=== PATIENT | male | born 2000 | race Caucasian/White ===

== ENCOUNTER 2023-02-14 11:20 | Emergency (ER) | payer SELFPAY ==
[~2023-02-14] VITALS: Ht 160 cm; Wt 58.1 kg
[2023-02-14 11:22] VITALS: BP 122/59; PULSE 75; RESP 16; TEMP 98; O2SAT 99
[2023-02-14] MEDS ORDERED: LIDOCAINE MPF 1% 10 MG/ML VIAL INJ ONE (13:00)
[2023-02-14] MEDS ORDERED: BACITRACIN OINT 500 UNITS/GM PKT TP ONE (13:00)
[2023-02-14] MEDS ORDERED: BACI-418 TP (15:30)
[2023-02-14] MEDS ORDERED: IBUP-2213 PO (15:30)
[2023-02-14 15:44] VITALS: BP 122/59; PULSE 75; RESP 16; TEMP 98; O2SAT 99
== END 2023-02-14 15:45 | disposition home or self-care (01) ==
LOC: MED 11:20
DX: S01.112A Laceration without foreign body of left eyelid and periocular area, initial encounter (principal); Z79.899 Other long term (current) drug therapy; X58.XXXA Exposure to other specified factors, initial encounter; Y93.89 Activity, other specified; Y92.89 Other specified places as the place of occurrence of the external cause; Y99.8 Other external cause status
CPT/HCPCS: 12011; 70450; 90471; 90715; 99285; J2001

== ENCOUNTER 2023-02-19 10:03 | Emergency (ER) | payer SELFPAY ==
[~2023-02-19] VITALS: Ht 157.5 cm; Wt 59.0 kg
[~2023-02-19 10:03] MED LIST: BACI-418 TP; IBUP-2213 PO
[2023-02-19 10:19] VITALS: BP 105/63; PULSE 89; RESP 18; TEMP 98; O2SAT 98
== END 2023-02-19 10:50 | disposition home or self-care (01) ==
LOC: MED 10:03
DX: S01.112A Laceration without foreign body of left eyelid and periocular area, initial encounter (principal); Z79.899 Other long term (current) drug therapy; W21.89XA Striking against or struck by other sports equipment, initial encounter; Y93.66 Activity, soccer; Y92.89 Other specified places as the place of occurrence of the external cause; Y99.8 Other external cause status
CPT/HCPCS: 99281